=== PATIENT | female | born 1950 | race Two or more races ===

== ENCOUNTER 2018-08-17 05:26 | Day surgery (SDC) | payer OTHER ==
[~2018-08-17 05:26] MED LIST: AMOXICILLIN500 MG; HYZAAR 50-12.1 UDTAB; PRILOSEC10 MG; SYNTHROID50 MCG; URIN D.S. TABLE1 TAB; ZOCOR20 MG
[2018-08-17] MEDS ORDERED: DUI500 PO (08:55)
[2018-08-17] MEDS ORDERED: ULTRAM50 MG PO (08:55)
== END 2018-08-17 16:00 | disposition home or self-care (01) ==
LOC: CIR.AMB 05:26
DX: M23.321 Other meniscus derangements, posterior horn of medial meniscus, right knee (principal)